=== PATIENT | male | born 2000 | race Asian ===

== ENCOUNTER 2019-06-10 16:47 | Emergency (ER) | payer OTHER ==
[2019-06-10] MEDS ORDERED: SODIUM CHLORIDE 0.9% 1,000 ML IV ONE (16:53)
--- NOTE | 2019-06-10 17:01 | ED Physician Documentation ---
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 He only had a protein bar to eat before this today. He is using Hydroxycut as well to help him make weight. Upon EMS arrival, they found him to be hypotensive and orthostatic. They gave him IV fluids and he is currently feeling better. No chest pain. No syncope. No nausea or vomiting. No head injury. Review of Systems Ten Systems: 10 systems reviewed and negative Constitutional: denies: Fever, Chills Throat: denies: Sore throat Cardiac: denies: Chest pain / pressure Respiratory: denies: Cough, Wheezing GI: denies: Nausea, Vomiting, Diarrhea Skin: denies: Rash Musculoskeletal: denies: Neck pain, Extremity pain Neurologic: denies: Focal weakness, Numbness, Seizure, Confused, Headache PD PAST MEDICAL HISTORY - Past Medical History Past Medical History: No - Past Surgical History Past Surgical History: No - Allergies Allergies/Adverse Reactions: Allergies Allergy/AdvReac Type Severity Reaction Status Date / Time No Known Drug Allergies Allergy Verified 06/10/19 16:51 - Living Situation Living Situation: reports: With family Living Arrangement: reports: At home - Social History Does the pt drink ETOH?: No Does the pt have substance abuse?: No - Family History Family history: reports: Non contributory PD ED PE NORMAL - Vitals Vital signs reviewed: Yes - General General: Alert and oriented X 3, No acute distress, Well developed/nourished - HEENT HEENT: PERRL, Moist mucous membranes, Pharynx benign - Neck Neck: Supple, no meningeal sign - Cardiac Cardiac: RRR, No murmur, Strong equal pulses - Respiratory Respiratory: No respiratory distress, Clear bilaterally - Abdomen Abdomen: Soft, Non tender, Non distended - Derm Derm: Warm and dry - Extremities Extremities: No edema - Neuro Neuro: Alert and oriented X 3 - Psych Psych: Normal mood, Normal affect Results - Vitals Vitals: Vital Signs - 24 hr 0106/10/19 06/10/19 16:51 18:13 18:21 Temperature 36.8 C 36.6 C 36.5 C Heart Rate 88 85 88 Respiratory 14 15 14 Rate Blood Pressure 131/81 H 122/76 122/76 O2 Saturation 98 100 100 Oxygen O2 Source Room air - EKG (time done) 1653 Rate: Rate (enter#) (88) Rhythm: NSR [place]: Normal Intervals: Normal CO QRS: Normal Ischemia: ST elevation c/w repol, ST depression (borderline) Compare to prior EKG: Old EKG unavailable - Labs Labs: Laboratory Tests 06/10/19 06/10/19 06/10/19 17:00 17:00 17:00 WBC 10.7 RBC 5.13 Hgb 15.2 Hct 45.5 MCV 88.7 MCH 29.6 MCHC 33.4 RDW 13.0 Plt Count 201 MPV 9.8 Neut # (Auto) 8.9 H Lymph # (Auto) 0.9 L Day # (Auto) 0.6 Eos # (Auto) 0.3 Baso # (Auto) 0.1 Absolute Nucleated RBC 0.00 Nucleated RBC % 0.0 Sodium 137 Potassium 4.2 Chloride 102 Carbon Dioxide 24 Anion Gap 11.0 BUN 19 Creatinine 1.0 Estimated GFR (MDRD) 96 Glucose 94 Calcium 9.2 Total Bilirubin 0.8 AST 23 ALT 21 Alkaline Phosphatase 57 Troponin I High Sens < 2.3 L Total Protein 7.4 Albumin 4.0 Globulin 3.4 Albumin/Globulin Ratio 1.2 Lipase 30 - Rads (name of study) Chest x-ray Radiology: Prelim report reviewed, EMP read contemporaneously, See rad report (No acute disease) PD MEDICAL DECISION MAKING - ED course Complexity details: reviewed results, re-evaluated patient, considered differential, d/w patient ED course: Patient appeared to be dehydrated, was orthostatic on scene. Feels better after IV fluids. Symptoms resolved. No acute findings on laboratory testing. Will increase his fluid intake at home. No arrhythmias on telemetry. Patient counseled regarding signs and symptoms for which I believe and urgent re- evaluation would be necessary. Patient with good understanding of and agreement to plan and is comfortable going home at this time This document was made in part using voice recognition software. While efforts are made to proofread this document, sound alike and grammatical errors may occur. Departure - Departure Disposition: 01 Home, Self Care Clinical Impression: Dehydration, Near syncope Condition: Good Instructions: ED Dehydration, ED Near Syncope Unkn Follow-Up: your,doctor within 1 week [Other] Comments: Return if you worsen. Follow-up with your doctor for further care. You need to increase your water intake at home. You should stop the Hydroxycut as well. Discharge Date/Time: 06/10/19 18:21
[2019-06-10 17:06] LABS: BASOPHILS # (AUTO) 0.1 10^3/uL (0.0-0.1); BASOPHILS % (AUTO) 0.5 %; EOSINOPHILS # (AUTO) 0.3 10^3/uL (0.0-0.7); EOSINOPHILS % (AUTO) 2.4 %; HGB - HEMOGLOBIN 15.2 g/dL (14.0-18.0); LYMPHOCYTES # (AUTO) 0.9 10^3/uL (1.5-3.5); LYMPHOCYTES % (AUTO) 8.2 %; MEAN CORPUSCULAR HEMOGLOBIN 29.6 pg (27.0-31.0); MEAN CORPUSCULAR HGB CONC 33.4 g/dL (32.0-36.0); MEAN CORPUSCULAR VOLUME 88.7 fL (80.0-94.0); MEAN PLATELET VOLUME 9.8 fL (7.4-11.4); MONOCYTES # (AUTO) 0.6 10^3/uL (0.0-1.0); MONOCYTES % (AUTO) 5.6 %; NEUTROPHILS # (AUTO) 8.9 10^3/uL (1.5-6.6); NEUTROPHILS % (AUTO) 82.8 %; PLT - PLATELET COUNT 201 10^3/uL (130-450); RED BLOOD COUNT 5.13 10^6/uL (4.70-6.10); WHITE BLOOD COUNT 10.7 x10^3/uL (4.8-10.8)
--- NOTE | 2019-06-10 17:19 | XRAY Report ---
Reason: near syncope Procedure Date: 06/10/2019 Accession Number: [id number] / [id number] Procedure: XR - Chest 1 View X-Ray CPT Code: 44963 Final Report FULL RESULT: EXAM: CHEST RADIOGRAPHY EXAM DATE: 06/10/2019 05:06 PM. CLINICAL HISTORY: Near syncope. COMPARISON: None. TECHNIQUE: Upright AP view. FINDINGS: Lungs/Pleura: No focal opacities evident. No pleural effusion. No pneumothorax. Mediastinum: Within exam limitations, the cardiomediastinal contour is normal. Other: Obliquely oriented striations project over the upper chest bilaterally which appears artifactual. IMPRESSION: Normal single view chest. RADIA
[2019-06-10 17:20] LABS: ALBUMIN/GLOBULIN RATIO 1.2 (1.0-2.2); BILIRUBIN,TOTAL 0.8 mg/dL (0.2-1.0); CALCIUM 9.2 mg/dL (8.5-10.3); TOTAL PROTEIN 7.4 g/dL (6.7-8.2)
[2019-06-10 18:14] VITALS: BP 122/76
== END 2019-06-10 18:21 | disposition home or self-care (01) ==
LOC: ED 16:47
DX: E86.0 Dehydration (principal); I95.1 Orthostatic hypotension
CPT/HCPCS: 36415; 71045; 80053; 83690; 84484; 85025; 93005; 96360; 99284

== ENCOUNTER 2021-08-25 13:10 | Emergency (ER) | payer OTHER ==
[2021-08-25] MEDS ORDERED: APIXABAN 5 MG TABLET PO STA (15:46)
--- NOTE | 2021-08-25 15:49 | ED Physician Documentation ---
History of Present Illness - Stated complaint Stated Complaint: LEFT CALF PX & SWELLING - Chief complaint Chief Complaint: Ext Problem - Additonal information Additional information: 21-year-old male presents emergency department for evaluation of left lower extremity leg swelling. He reports being in [place] on August 14 and playing football. He unfortunately sustained a left knee injury which includes severe MCL and ACL tears. He is scheduled to undergo repair of these upcoming on August 31. However due to the leg swelling [facility] advised the patient come to the ER for DVT rule out. He has been in a knee immobilizer since 14 August. Swelling of the leg began a few days after 9 patient denies any pertinent past medical history. No history of hormone use or cancer. No history of clotting disorder. No family history of clotting disorders. He takes no prescribed medications with the exception of Tylenol and Vicodin for the knee pain. He did arrive to the [facility] from [place] yesterday however he had the leg swelling preceding that Review of Systems Constitutional: reports: Reviewed and negative Cardiac: denies: Chest pain / pressure, Palpitations Respiratory: denies: Dyspnea, Cough GI: denies: Abdominal Pain : denies: Dysuria Skin: reports: Reviewed and negative Musculoskeletal: reports: Extremity swelling Neurologic: reports: Reviewed and negative PD PAST MEDICAL HISTORY - Past Surgical History Past Surgical History: No - Present Medications Home Medications: Ambulatory Orders Medication Instructions Recorded Confirmed Apixaban [Eliquis] 5 mg PO BID #70 tablet 08/25/21 - Allergies Allergies/Adverse Reactions: Allergies Allergy/AdvReac Type Severity Reaction Status Date / Time No Known Drug Allergies Allergy Verified 08/25/21 13:15 - Social History Does the pt smoke?: No Smoking Status: Never smoker Does the pt drink ETOH?: No Does the pt have substance abuse?: No PD ED PE NORMAL - General General: Alert and oriented X 3, No acute distress - Neck Neck: Supple, no meningeal sign - Cardiac Cardiac: RRR, No murmur - Respiratory Respiratory: No respiratory distress, Clear bilaterally - Abdomen Abdomen: Normal bowel sounds, Soft - Back Back: No CVA TTP, No spinal TTP - Derm Derm: Normal color, Warm and dry - Extremities Extremities: No: No calf tenderness / cord (Left calf measures at 46 cm. Right calf measures at centimeters. Tenderness to the posterior calf and cord of the Left leg) - Neuro Neuro: Alert and oriented X 3, heel reducer 2-12 intact Eye Opening: Spontaneous Motor: Obeys Commands Verbal: Oriented GCS Score: 15 - Psych Psych: Normal mood PD ED PE EXPANDED - General General: Alert, No acute distress - Cardiac Cardiac: Regular Rate, Radial strong equal, Pedal strong equal, Cap refill < 2 sec - Respiratory Respiratory: Clear to ausultation carmine. No: Distress, Labored - Abdomen Abdomen: Normal Bowel sounds. No: Tender to palpation Results - Vitals Vitals: Vital Signs - 24 hr 08/25/21 13:15 Temperature 36.5 C Heart Rate 84 Respiratory 16 Rate Blood Pressure 146/81 H O2 Saturation 98 Oxygen O2 Source Room air - Rads (name of study) left US DVT Radiology: Final report received (1 of 2 peroneal deep veins are thrombosed. Multiple proximal gastrocnemius veins also thrombosed. This finding is consistent with extensive deep vein thrombosis of the left lower extremity) PD MEDICAL DECISION MAKING - ED course Complexity details: reviewed results, re-evaluated patient, considered differential, d/w patient ED course: 21-year-old male presents emergency department for evaluation of left lower leg extremity swelling and calf pain that began a few days after he injured his knee while playing football. He has been in a knee immobilizer. He is scheduled to undergo ACL and MCL repair on 31 August at [facility]. Unfortunately the ultrasound today does confirm extensive deep vein thrombosis in this left lower extremity predominantly the gastrocnemius veins. This is likely provoked secondary to the knee immobilizer. Patient is started on Eliquis. He is advised to discuss this with his orthopedic surgeon as surgery will likely need to be delayed. Prescription for Eliquis was sent to the [facility] in [place]. We did discuss appropriate and emergent return precautions for concerns of bleeding and trauma. Departure - Departure Disposition: 01 Home, Self Care Clinical Impression: Deep vein thrombosis of left lower limb Qualifiers: Affected thrombotic vein of extremity: peroneal Chronicity: acute Qualified Code(s): I82.452 - Acute embolism and thrombosis of left peroneal vein Condition: Stable Record reviewed to determine appropriate education?: Yes Instructions: ED DVT, Apixaban oral tablets Follow-Up: ZONIA OLVERA MD [Primary Care Provider] - Prescriptions: Apixaban [Eliquis] 5 mg PO BID #70 tablet Comments: Gio you are seen today for swelling in the left lower leg. Unfortunately the ultrasound confirms that you have multiple deep vein thrombosis in both your peroneal as well as your gastrocnemius veins. This is most likely due to the knee immobilizer which you are using for your ACL and MCL injuries. Deep vein thrombosis does put you at risk to have clot travel into your lungs. This is called a pulmonary embolus. In order to treat your deep vein thrombosis we are starting you on a medication called Eliquis. This prescription has been sent to the [facility] in [place]. Initially please take 10 mg by mouth twice a day for 7 days. Following that you will begin taking 5 mg twice daily moving forward. You most likely will need to be on anticoagulation for a minimum of 3 months. Please discuss this ED visit with [facility]. They may want to make a referral for you to a computer technical support specialist/oncologist. It is also critical that you discuss this ED visit and this diagnosis of deep vein thrombosis and subsequent anticoagulation with your orthopedic surgeon before you have surgery on . They may need to delay surgery. Because the anticoagulation does put you at risk for uncontrolled bleeding you are to return immediately to the ER if you develop any sudden severe headache, have any fall and hit your head, are involved in a major motor vehicle crash, have black or bloody stools, have unexplained bleeding in your gums, or have blood in your urine.
--- NOTE | 2021-08-25 15:53 | Ultrasound Report ---
PROCEDURE: Duplex Ext Veins Left INDICATIONS: pain and swelling TECHNIQUE: Real-time imaging, as well as color and pulse Doppler interrogation, were performed of the lower extr emity deep veins from the inguinal ligament to the popliteal fossa. COMPARISON: None. FINDINGS: Occlusive thrombus is seen in one of two paired peroneal veins. There is also thrombus in the gastrocnemius veins. The deep veins are otherwise normally compressible, and free of intraluminal thrombus. Color and pulse Doppler demonstrate normal phasic intraluminal flow. There is normal aug mentation response to distal compression maneuver. IMPRESSION: Deep venous thrombosis within 1 of 2 paired peroneal veins and within the visualized gastrocnemius ve ins. The more superior deep veins are patent. Findings were discussed with the Emergency Department provider by telephone on 08/25/2021 at 3:50 PM. Reviewed by: Jersey Tinsley MD on 08/25/2021 3:52 PM PDT Approved by: Jersey Tinsley MD on 08/25/2021 3:52 PM PDT Station ID: [id number]
[2021-08-25 16:05] VITALS: BP 128/80
== END 2021-08-25 16:04 | disposition home or self-care (01) ==
LOC: ED 13:10
DX: I82.452 Acute embolism and thrombosis of left peroneal vein (principal); S89.82XA Other specified injuries of left lower leg, initial encounter; X58.XXXA Exposure to other specified factors, initial encounter; Y93.61 Activity, american tackle football
CPT/HCPCS: 93971; 99284; A9270